=== PATIENT | female | born 1980 | race American Indian/Alaskan Native ===

== ENCOUNTER 2016-09-04 10:47 | Inpatient (IN) | payer OTHER ==
[2016-09-04] MEDS ORDERED: LACTATED RINGERS 500 ML IV ONE (11:22)
[2016-09-04 12:43] LABS: Hematocrit 31.8 % (30.3-42.9); Hemoglobin 10.2 gm/dl (10.1-14.3); Mean Corpuscular HGB Conc 32 % (30-34); Mean Corpuscular Volume 80 fl (79-97); Platelet Count 108 K/mm3 (140-440); Red Blood Count 3.99 M/mm3 (3.65-5.03); Red Cell Distribution Width 15.3 % (13.2-15.2); White Blood Count 6.2 K/mm3 (4.5-11.0)
[2016-09-04 13:02] LABS: Alanine Aminotransferase 9 units/L (7-56); Lactate Dehydrogenase 201 units/L (91-180); Uric Acid 3.6 mg/dL (3.5-7.6)
[2016-09-04 13:11] LABS: Mean Corpuscular Hemoglobin 25 pg (28-32)
[2016-09-04] MEDS ORDERED: ALUM-MAG HYDROX-SIMETH 200-200-20MG/5ML PO PRN (13:19)
[2016-09-04] MEDS ORDERED: BENADRYL PO PRN (13:19)
[2016-09-04] MEDS ORDERED: AMBIEN PO PRN (13:19)
[2016-09-04] MEDS ORDERED: MYLICON PO PRN (13:19)
[2016-09-04] MEDS ORDERED: COLACE PO PRN (13:19)
[2016-09-04] MEDS ORDERED: TYLENOL PO PRN (13:19)
[2016-09-04 13:22] LABS: Bilirubin,Urine NEG (Negative); Blood,Urine NEG (Negative); Ketones,Urine NEG (Negative); Leukocyte Esterase,Urine NEG (Negative); Mucus,Urine FEW /HPF; Nitrite,Urine NEG (Negative); Protein,Urine <15 mg/dL mg/dL (Negative); Urobilinogen,Urine < 2.0 mg/dL (<2.0)
[2016-09-04] MEDS: CELESTONE SOLUSPAN IM SCH (14:44)
[2016-09-04] MEDS: LACTATED RINGERS 1,000 ML IV SCH ×2 (15:13→20:07)
[2016-09-04] MEDS: NORMODYNE PO SCH ×2 (15:56→23:49)
--- NOTE | 2016-09-04 16:24 | Consultation ---
History of Present Illness Reason for consult: other (Pt is 36 y.o G [id number] at 32.6 weeks with MARISELA 10/14/16 Patient presented from Primary OB's office on 09/04/16 with elevated BP of 155/ 110 mm Hg . First OB appt BP of 128/93 mm Hg was noted . Patient reports history of PIH @ 2014. 24 hr urine and BMZ in progress . Denies [employer]ICLE [employer]OR complaints and reports AFM BP of 137/ 82 mm Hg . ) Medications and Allergies Allergies Allergy/AdvReac Type Severity Reaction Status Date / Time No Known Allergies Allergy Unverified 09/04/16 10:48 Active Meds: Active Medications Acetaminophen (Tylenol) 650 mg PO Q4H PRN PRN Reason: Pain MILD(1-3)/Fever >100.5/BOWDEN Al Hydrox/Mg Hydrox/Simethicone (Alum-Mag Hydrox-Simeth [id number]/5ml) 30 ml PO Q6H PRN PRN Reason: Indigestion Aspirin (Baby Aspirin) 81 mg PO QDAY [facility] Betamethasone Acet/Betameth SodPhos (Celestone Soluspan) 12 mg IM Q24H [facility] Stop: 09/05/16 15:01 Last Admin: 09/04/16 14:44 Dose: 12 mg Diphenhydramine HCl (Benadryl) 25 mg PO Q6H PRN PRN Reason: Itching Docusate Sodium (Colace) 100 mg PO Q12H PRN PRN Reason: Constipation Lactated Ringer's (Lactated Ringers) 1,000 mls @ 125 mls/hr IV DIRECT [facility] Last Admin: 09/04/16 15:13 Dose: 125 mls/hr Influenza Virus Vaccine Quadrival (Fluarix Quad [id number](36 Mos+)) 60 mcg IM .ONCE ONE Stop: 09/05/16 12:01 Labetalol HCl (Normodyne) 200 mg PO BID [facility] Last Admin: 09/04/16 15:56 Dose: 200 mg Multivitamins/Iron/Calcium ( Vitamin) 1 each PO QDAY [facility] Simethicone (Mylicon) 80 mg PO Q6H PRN PRN Reason: Gas pain Zolpidem Tartrate (Ambien) 10 mg PO ONCE PRN PRN Reason: Sleep Review of Systems Constitutional: no fever, no chills Eyes: deferred Ears, nose, mouth and throat: deferred Cardiovascular: no chest pain, no orthopnea, no palpitations, no edema, no syncope, no shortness of breath Respiratory: no cough Breasts: deferred Gastrointestinal: no abdominal pain, no nausea, no vomiting Genitourinary: contractions, no vaginal bleeding, no vaginal discharge, no leakage of fluid Rectal Exam: deferred Musculoskeletal: no low back pain Integumentary: no rash Neurological: no weakness, no seizures, no syncope, no headaches Psychiatric: no depression Endocrine: no high blood sugars Hematologic/Lymphatic: no easy bruising, no easy bleeding Allergic/Immunologic: no wheezing - Vital Signs Vital signs: Vital Signs Pulse Pulse Ox 79 99 09/04/16 11:08 09/04/16 11:08 Temp Pulse Resp BP Pulse Ox 92 H 137/82 100 09/04/16 16:14 09/04/16 16:14 09/04/16 14:52 - Physical Exam Breasts: Positive: deferred Cardiovascular: Regular rate, Normal S1, Normal S2 Lungs: Positive: Clear to auscultation, Normal air movement Abdomen: Negative: tenderness, guarding Uterus: Positive: other (Fundus NT ) Extremities: Positive: normal Deep Tendon Reflex Grade: Normal +2 - Obstetrical FHR: category 1 Uterine Contraction Monitor Mode: External (none traced) Uterine Contraction Pattern: Absent Results Result Diagrams: 09/04/16 12:07 09/04/16 12:07 Abnormal lab results 09/04/16 09/04/16 Range/Units 12:07 12:07 MCH 25 L (28-32) pg RDW 15.3 H (13.2-15.2) % Plt Count 108 L (140-440) K/mm3 Creatinine 0.5 L (0.7-1.2) mg/dL Lactate Dehydrogenase 201 H (91-180) units/L All other labs normal. Assessment and Plan A) 1. 32.6 weeks gestation 2. Presented with elevated BP of 155/110 from POB 3. NO [employer] complaints 4. Stable BP of 137/82 mm Hg under Labetalol 200 mg PO BID 5. History of PIH in 2013 6. 24 hr urine and BMZ in progress P) 1. Continue inpatient evaluation 2. Continue 24 hr urine 3. 2 nd BMZ due 09/05/16 4. Labetalol 200 mg PO BID 5. LDA 6. Daily weight 7. MgSO4 as indicated 8. Strict I/O's 9. NICU consult 10. Continuous monitoring and BPP twice a week 11. Deliver with abnormal findings suggestive of PreEclampsia , or continue her hospital admission with borderline findings 12. With concerns call on all LOLA RODRIGUEZ-Dr. Chou .
[2016-09-04] MEDS ORDERED: MAGNESIUM SULFATE 4GM/100ML 100 ML IV ONE (16:52)
[2016-09-04] MEDS ORDERED: MAGNESIUM SULFATE 40GM/1000ML 1,000 ML IV SCH ×2 (17:00)
--- NOTE | 2016-09-04 17:00 | History and Physical Report ---
History of Present Illness Date of examination: 09/04/16 Date of admission: 09/04/16 13:45 Chief complaint: elevated blood pressure and abdominal pain. right upper abdomen Past History Past Medical History: hypertension (PIH 2014 with previous ) Social history: no significant social history - Obstetrical History Expected Date of Delivery: 10/24/16 Actual Gestation: 32 Week(s) 6 Day(s) : 5 Induced : 1 Number of Living Children: 3 Medications and Allergies Allergies Allergy/AdvReac Type Severity Reaction Status Date / Time No Known Allergies Allergy Unverified 09/04/16 10:48 Active Meds: Active Medications Acetaminophen (Tylenol) 650 mg PO Q4H PRN PRN Reason: Pain MILD(1-3)/Fever >100.5/BOWDEN Al Hydrox/Mg Hydrox/Simethicone (Alum-Mag Hydrox-Simeth [phone]/5ml) 30 ml PO Q6H PRN PRN Reason: Indigestion Aspirin (Baby Aspirin) 81 mg PO QDAY [facility] Betamethasone Acet/Betameth SodPhos (Celestone Soluspan) 12 mg IM Q24H [facility] Stop: 09/05/16 15:01 Last Admin: 09/04/16 14:44 Dose: 12 mg Diphenhydramine HCl (Benadryl) 25 mg PO Q6H PRN PRN Reason: Itching Docusate Sodium (Colace) 100 mg PO Q12H PRN PRN Reason: Constipation Lactated Ringer's (Lactated Ringers) 1,000 mls @ 125 mls/hr IV DIRECT [facility] Last Admin: 09/04/16 15:13 Dose: 125 mls/hr Magnesium Sulfate (Magnesium Sulfate 40gm/1000ml) 1,000 mls @ 25 mls/hr IV DIRECT [facility] PRN Reason: 1 GM/HR Magnesium Sulfate (Magnesium Sulfate 40gm/1000ml) 1,000 mls @ 50 mls/hr IV DIRECT [facility] PRN Reason: 2 GM/HR Magnesium Sulfate (Magnesium Sulfate 4gm/100ml) 100 mls @ 300 mls/hr IV ONCE ONE Stop: 09/04/16 17:11 Influenza Virus Vaccine Quadrival (Fluarix Quad [id number](36 Mos+)) 60 mcg IM .ONCE ONE Stop: 09/05/16 12:01 Labetalol HCl (Normodyne) 200 mg PO BID [facility] Last Admin: 09/04/16 15:56 Dose: 200 mg Multivitamins/Iron/Calcium ( Vitamin) 1 each PO QDAY [facility] Simethicone (Mylicon) 80 mg PO Q6H PRN PRN Reason: Gas pain Zolpidem Tartrate (Ambien) 10 mg PO ONCE PRN PRN Reason: Sleep Review of Systems All systems: negative - Vital Signs Vital signs: Vital Signs Pulse Pulse Ox 79 99 09/04/16 11:08 09/04/16 11:08 Temp Pulse Resp BP Pulse Ox 93 H 146/81 100 09/04/16 16:23 09/04/16 16:23 09/04/16 14:52 - Physical Exam Breasts: Cardiovascular: Regular rate, Normal S1, Normal S2 Abdomen: Positive: normal appearance, soft, normal bowel sounds. Negative: distention, tenderness Vulva: both: normal Vagina: Positive: normal moisture. Negative: discharge Cervix: Negative: lesion, discharge Uterus: Positive: normal size, normal contour Adnexa: both: normal Anus/Rectum: Positive: normal perianal skin, heme negative. Negative: rectal mass, hemorrhoids Extremities: Deep Tendon Reflex Grade: Normal +2 - Obstetrical FHR: category 1 Uterine Contraction Monitor Mode: External Uterine Contraction Pattern: Absent Uterine Tone Measurement Phase: Resting Results Result Diagrams: 09/04/16 12:07 09/04/16 12:07 Abnormal lab results 09/04/16 09/04/16 Range/Units 12:07 12:07 MCH 25 L (28-32) pg RDW 15.3 H (13.2-15.2) % Plt Count 108 L (140-440) K/mm3 Creatinine 0.5 L (0.7-1.2) mg/dL Lactate Dehydrogenase 201 H (91-180) units/L All other labs normal. Assessment and Plan IUP at 32 6/7 weeks, Elevated Blood presures- Chronic HTN vs PIH HX of PIH 2013 Late PNC starting second trimester plan- admit- antepartum STeroids labetelol 200 mg po BID [facility] consult Start Magnesium sulfate 24 hour urine
[2016-09-04] MEDS: BABY ASPIRIN PO SCH (20:07)
--- NOTE | 2016-09-05 06:57 | Admit Criteria Form ---
Admission Criteria Documentation: HYPERTENSIVE DISORDERS OF Clinical Indications for Admission to Inpatient Care (Place 'X' for any and all applicable criteria): Admission is indicated for ANY ONE of the following (1)(2)(3)(4)(5): [ ]I. Eclampsia[A][B] [ ]II. Preeclampsia with severe features (ie, severe preeclampsia) indicated by ANY ONE of the following[B][C]: [ ]a) SBP greater than or equal to 160 mm Hg or DBP greater than or equal to 110 mm Hg on 2 occasions at least 4 hours apart while the patient is at bed rest (unless antihypertensive therapy is initiated before this time) [ ]b) Platelet count less than 100,000/mm3 (100 x109/L) [ ]c) Impaired liver function as indicated by ANY ONE of the following: [ ]i. Elevation of liver enzymes (eg, SGOT, SGPT) to twice normal concentration [ ]ii. Severe persistent right upper quadrant or epigastric pain unresponsive to medication and not accounted for by alternative diagnosis [ ]d) Progressive renal insufficiency indicated by ANY ONE of the following: [ ]i. Serum creatinine concentration greater than 1.1 mg/dL (97 micromoles/L) [ ]ii. Doubling (from baseline) of serum creatinine concentration in the absence of other renal disease [ ]e) Pulmonary edema [ ]f) Cerebral or visual symptoms (eg, headache, Altered mental status , changes in vision) [ ]III. Delivery planned due to nonsevere preeclampsia as indicated by ALL of the following: [ ]a) Nonsevere preeclampsia present as indicated by ALL of the following: [ ]i. Woman at 20 or more weeks' gestation [ ]ii. New-onset SBP greater than or equal to 140 mm Hg but less than 160 mm Hg or DBP greater than or equal to 90 mm Hg but less than 110 mm Hg on 2 occasions at least 4 hours apart [ ]iii. Proteinuria present as indicated by ANY ONE of the following: [ ]A. Urinary protein excretion greater than or equal to 300 mg per 24-hour collection (or this amount extrapolated from a shorter timed collection) [ ]B. Protein/creatinine ratio greater than or equal to 0.3 (measured in mg/dL) [ ]b) Delivery indicated due to ANY ONE of the following: [ ]i. Gestational age of 37 0/7 weeks or more [ ]ii. Gestational age of 34 0/7 weeks to 36 6/7 weeks and ANY ONE of the following: [ ]A. Progressive labor or rupture of membranes [ ]B. Abnormal biophysical profile [ ]C. Suspected abruptio placentae [ ]D. Ultrasound estimate of weight less than 5th percentile [ ]E. Other indication for delivery [ ]IV. Delivery planned due to gestational hypertension[D] because of ANY ONE of the following: [ ]a) Delivery indicated because gestational age of 37 0/7 weeks or more has been reached [ ]b) Gestational age of 34 0/7 weeks to 36 6/7 weeks for which delivery is indicated because of ANY ONE of the following: [ ]i. Progressive labor or rupture of membranes [ ]ii. Abnormal biophysical profile [ ]iii. Suspected abruptio placentae [ ]iv. Ultrasound estimate of weight less than 5th percentile [ ]v. Other indication for delivery [ ]V. Hypertension of any category[E] during with acute end organ damage as indicated by ANY ONE of the following: [ ]a) Hypertensive encephalopathy (eg, Altered mental status that is severe or persistent )(11) [ ]b) Cerebral infarction [ ]c) Intracranial hemorrhage [ ]d) Myocardial ischemia or infarction [ ]e) Pulmonary edema [ ]f) Aortic dissection [ ]g) Seizure [ ]h) Papilledema [ ]i) Microangiopathic hemolytic anemia [ ]j) Visual loss [ ]k) Acute renal failure [ ]) Hypertension during with evidence of compromise as indicated by ANY ONE of the following: [ ]a) Abnormal heart tones [ ]b) Abnormal stress test [ ]c) Abnormal biophysical profile [X ]VII) patient requires inpatient control of blood pressure indicated by (see Hypertensive Disorders of : Observation Care [facility] guideline as appropriate) ALL of the following: [X ]a) SBP is greater than or equal to 160 mm Hg or DBP is greater than or equal to 105 mm Hg [X ]b) Blood pressure cannot be reduced below these levels with outpatient or observation care treatment (eg, oral medications not effective) Extended stay beyond goal length of stay may be needed for : [ ]a) Eclampsia [ ]b) Ongoing compromise [ ]c) Complications of hypertensive disorders of [ ]d) Active comorbidities (eg, heart failure, poorly controlled diabetes, renal insufficiency) [ ]e) Persistent hypertension [ ]f) Delivery planned The original [facility] content created by [facility] has been revised. The portions of the content which have been revised are identified through the use of italic text or in bold, and [facility] has neither reviewed nor approved the modified material. All other unmodified content is copyright [facility]. Please see references footnoted in the original [facility] edition 2016. Admission Criteria Met: Yes
--- NOTE | 2016-09-05 07:43 | Ultrasound Report ---
BIOPHYSICAL PROFILE: History: -induced hypertension. Technique: Transabdominal ultrasound with Doppler interrogation. 2 - breathing movements 2 - movements 2 - posture and tone 2 - Qualitative amniotic fluid volume 8 - TOTAL SCORE OF POSSIBLE 8 Heart Rate (bpm) 131
--- NOTE | 2016-09-05 08:08 | Progress Note ---
Assessment and Plan HD 2- elevated BP- IUP at 32 6/7 weeks Subjective - Subjective Date of service: 09/05/16 Principal diagnosis: elevated bp, Interval history: pt doing well. awaiting conclusion of 24 hour urine. Bp doing well on labetolol Patient reports: new complaints, loss of fluid Objective - Vital Signs Vital Signs: Vital Signs - 12hr 09/04/16 09/04/16 09/04/16 20:06 20:11 20:16 Temperature Pulse Rate 94 H 97 H 100 H Respiratory Rate Blood Pressure O2 Sat by Pulse 97 98 98 Oximetry 09/04/16 09/04/16 09/04/16 20:21 20:26 20:31 Temperature Pulse Rate 95 H 90 93 H Respiratory Rate Blood Pressure O2 Sat by Pulse 98 98 98 Oximetry 09/04/16 09/04/16 09/04/16 20:36 20:41 20:46 Temperature Pulse Rate 91 H 90 92 H Respiratory Rate Blood Pressure O2 Sat by Pulse 98 98 98 Oximetry 09/04/16 09/04/16 09/04/16 20:51 20:56 21:01 Temperature Pulse Rate 92 H 92 H 95 H Respiratory Rate Blood Pressure O2 Sat by Pulse 98 98 98 Oximetry 09/04/16 09/04/16 09/04/16 21:04 21:06 21:11 Temperature Pulse Rate 87 89 99 H Respiratory Rate Blood Pressure 120/75 O2 Sat by Pulse 98 96 Oximetry 09/04/16 09/04/16 09/04/16 21:16 21:21 21:26 Temperature Pulse Rate 87 91 H 100 H Respiratory Rate Blood Pressure O2 Sat by Pulse 98 98 98 Oximetry 09/04/16 09/04/16 09/04/16 21:31 21:36 21:41 Temperature Pulse Rate 104 H 97 H 95 H Respiratory Rate Blood Pressure O2 Sat by Pulse 98 98 98 Oximetry 09/04/16 09/04/16 09/04/16 21:46 21:51 21:56 Temperature Pulse Rate 91 H 88 87 Respiratory Rate Blood Pressure O2 Sat by Pulse 98 99 99 Oximetry 09/04/16 09/04/16 09/04/16 22:01 22:05 22:06 Temperature Pulse Rate 91 H 99 H 101 H Respiratory Rate Blood Pressure 131/74 O2 Sat by Pulse 99 98 Oximetry 09/04/16 09/04/16 09/04/16 22:11 22:16 22:21 Temperature Pulse Rate 95 H 89 89 Respiratory Rate Blood Pressure O2 Sat by Pulse 99 98 98 Oximetry 09/04/16 09/04/16 09/04/16 22:26 22:31 22:36 Temperature Pulse Rate 89 88 99 H Respiratory Rate Blood Pressure O2 Sat by Pulse 98 98 97 Oximetry 09/04/16 09/04/16 09/04/16 22:41 22:46 22:51 Temperature Pulse Rate 93 H 90 93 H Respiratory Rate Blood Pressure O2 Sat by Pulse 98 99 98 Oximetry 09/04/16 09/04/16 09/04/16 22:56 23:01 23:04 Temperature Pulse Rate 98 H 92 H 90 Respiratory Rate Blood Pressure 120/75 O2 Sat by Pulse 98 98 Oximetry 09/04/16 09/04/16 09/04/16 23:06 23:11 23:16 Temperature Pulse Rate 92 H 93 H 91 H Respiratory Rate Blood Pressure O2 Sat by Pulse 98 98 98 Oximetry 09/04/16 09/04/16 09/04/16 23:21 23:26 23:31 Temperature Pulse Rate 91 H 84 87 Respiratory Rate Blood Pressure O2 Sat by Pulse 98 97 97 Oximetry 09/04/16 09/04/16 09/04/16 23:36 23:41 23:46 Temperature Pulse Rate 85 88 86 Respiratory Rate Blood Pressure O2 Sat by Pulse 98 97 98 Oximetry 09/04/16 09/04/16 09/04/16 23:49 23:51 23:53 Temperature 98.2 F Pulse Rate 87 89 Respiratory 20 Rate Blood Pressure 120/75 O2 Sat by Pulse 99 Oximetry 09/04/16 09/05/16 09/05/16 23:56 00:01 00:04 Temperature Pulse Rate 80 86 85 Respiratory Rate Blood Pressure 124/75 O2 Sat by Pulse 98 97 Oximetry 09/05/16 09/05/16 09/05/16 00:06 00:11 00:16 Temperature Pulse Rate 90 87 87 Respiratory Rate Blood Pressure O2 Sat by Pulse 98 97 97 Oximetry 09/05/16 09/05/16 09/05/16 00:21 00:26 00:31 Temperature Pulse Rate 88 87 89 Respiratory Rate Blood Pressure O2 Sat by Pulse 97 97 97 Oximetry 09/05/16 09/05/16 09/05/16 00:36 00:41 00:46 Temperature Pulse Rate 91 H 85 95 H Respiratory Rate Blood Pressure O2 Sat by Pulse 97 98 98 Oximetry 09/05/16 09/05/16 09/05/16 00:51 00:56 01:01 Temperature Pulse Rate 85 86 87 Respiratory Rate Blood Pressure O2 Sat by Pulse 97 97 97 Oximetry 09/05/16 09/05/16 09/05/16 01:04 01:06 01:11 Temperature Pulse Rate 96 H 85 85 Respiratory Rate Blood Pressure 135/92 O2 Sat by Pulse 97 98 Oximetry 09/05/16 09/05/16 09/05/16 01:16 01:17 01:21 Temperature Pulse Rate 95 H 70 90 Respiratory Rate Blood Pressure 134/73 O2 Sat by Pulse 99 81 L 97 Oximetry 09/05/16 09/05/16 09/05/16 01:26 01:31 01:36 Temperature Pulse Rate 87 85 88 Respiratory Rate Blood Pressure O2 Sat by Pulse 97 97 96 Oximetry 09/05/16 09/05/16 09/05/16 01:41 01:46 01:51 Temperature Pulse Rate 90 87 86 Respiratory Rate Blood Pressure O2 Sat by Pulse 97 97 95 Oximetry 09/05/16 09/05/16 09/05/16 01:56 02:00 02:01 Temperature Pulse Rate 93 H 92 H 93 H Respiratory Rate Blood Pressure O2 Sat by Pulse 95 94 96 Oximetry 09/05/16 09/05/16 09/05/16 02:04 02:06 02:11 Temperature Pulse Rate 92 H 98 H 86 Respiratory Rate Blood Pressure 119/76 O2 Sat by Pulse 97 97 Oximetry 09/05/16 09/05/16 09/05/16 02:16 02:21 02:26 Temperature Pulse Rate 86 86 93 H Respiratory Rate Blood Pressure O2 Sat by Pulse 97 97 98 Oximetry 09/05/16 09/05/16 09/05/16 02:31 02:36 02:41 Temperature Pulse Rate 82 85 91 H Respiratory Rate Blood Pressure O2 Sat by Pulse 98 98 97 Oximetry 09/05/16 09/05/16 09/05/16 02:46 02:51 02:55 Temperature Pulse Rate 91 H 90 99 H Respiratory Rate Blood Pressure O2 Sat by Pulse 98 97 90 Oximetry 09/05/16 09/05/16 09/05/16 02:56 03:01 03:04 Temperature Pulse Rate 89 89 85 Respiratory Rate Blood Pressure 132/77 O2 Sat by Pulse 99 100 Oximetry 09/05/16 09/05/16 09/05/16 03:06 03:11 03:16 Temperature Pulse Rate 93 H 90 88 Respiratory Rate Blood Pressure O2 Sat by Pulse 98 100 100 Oximetry 09/05/16 09/05/16 09/05/16 03:17 03:21 03:26 Temperature Pulse Rate 101 H 83 86 Respiratory Rate Blood Pressure O2 Sat by Pulse 94 100 100 Oximetry 09/05/16 09/05/16 09/05/16 03:31 03:36 03:42 Temperature Pulse Rate 89 85 92 H Respiratory Rate Blood Pressure O2 Sat by Pulse 100 100 99 Oximetry 09/05/16 09/05/16 09/05/16 03:47 03:52 03:57 Temperature Pulse Rate 84 84 85 Respiratory Rate Blood Pressure O2 Sat by Pulse 98 97 98 Oximetry 09/05/16 09/05/16 09/05/16 04:02 04:04 04:07 Temperature Pulse Rate 86 83 83 Respiratory Rate Blood Pressure 136/80 O2 Sat by Pulse 98 98 Oximetry 09/05/16 09/05/16 09/05/16 04:12 04:17 04:22 Temperature Pulse Rate 86 87 90 Respiratory Rate Blood Pressure O2 Sat by Pulse 98 97 96 Oximetry 09/05/16 09/05/16 09/05/16 04:27 04:32 04:38 Temperature 98.0 F Pulse Rate 87 94 H 91 H Respiratory 20 Rate Blood Pressure O2 Sat by Pulse 97 97 97 Oximetry 09/05/16 09/05/16 09/05/16 04:40 04:43 04:48 Temperature Pulse Rate 92 H 88 87 Respiratory Rate Blood Pressure O2 Sat by Pulse 94 96 96 Oximetry 09/05/16 09/05/16 09/05/16 04:53 04:58 05:03 Temperature Pulse Rate 90 90 89 Respiratory Rate Blood Pressure O2 Sat by Pulse 96 97 96 Oximetry 09/05/16 09/05/16 09/05/16 05:04 05:08 05:13 Temperature Pulse Rate 85 91 H 94 H Respiratory Rate Blood Pressure 121/72 O2 Sat by Pulse 96 99 Oximetry 09/05/16 09/05/16 09/05/16 05:18 05:23 05:28 Temperature Pulse Rate 90 89 89 Respiratory Rate Blood Pressure O2 Sat by Pulse 99 98 98 Oximetry 09/05/16 09/05/16 09/05/16 05:33 05:38 05:43 Temperature Pulse Rate 91 H 90 91 H Respiratory Rate Blood Pressure O2 Sat by Pulse 98 98 98 Oximetry 09/05/16 09/05/16 09/05/16 05:48 05:53 05:58 Temperature Pulse Rate 96 H 95 H 89 Respiratory Rate Blood Pressure O2 Sat by Pulse 99 99 99 Oximetry 09/05/16 09/05/16 09/05/16 06:03 06:04 06:08 Temperature Pulse Rate 92 H 89 90 Respiratory Rate Blood Pressure 120/72 O2 Sat by Pulse 100 98 Oximetry 09/05/16 09/05/16 09/05/16 06:13 06:18 06:23 Temperature Pulse Rate 94 H 90 94 H Respiratory Rate Blood Pressure O2 Sat by Pulse 98 98 97 Oximetry 09/05/16 09/05/16 09/05/16 06:28 06:33 06:38 Temperature Pulse Rate 91 H 94 H 90 Respiratory Rate Blood Pressure O2 Sat by Pulse 99 99 100 Oximetry 09/05/16 09/05/16 09/05/16 06:43 06:48 06:53 Temperature Pulse Rate 91 H 91 H 86 Respiratory Rate Blood Pressure O2 Sat by Pulse 99 99 99 Oximetry 09/05/16 09/05/16 09/05/16 06:58 07:03 07:04 Temperature Pulse Rate 91 H 92 H 90 Respiratory Rate Blood Pressure 125/79 O2 Sat by Pulse 97 99 Oximetry 09/05/16 09/05/16 09/05/16 07:08 07:13 07:18 Temperature Pulse Rate 89 87 87 Respiratory Rate Blood Pressure O2 Sat by Pulse 99 97 97 Oximetry 09/05/16 09/05/16 09/05/16 07:23 07:28 07:33 Temperature Pulse Rate 88 88 95 H Respiratory Rate Blood Pressure O2 Sat by Pulse 97 97 97 Oximetry 09/05/16 09/05/16 09/05/16 07:38 07:43 07:48 Temperature Pulse Rate 93 H 90 88 Respiratory Rate Blood Pressure O2 Sat by Pulse 100 100 99 Oximetry 09/05/16 09/05/16 07:53 07:58 Temperature Pulse Rate 86 87 Respiratory Rate Blood Pressure O2 Sat by Pulse 100 100 Oximetry - Exam Breasts: deferred Cardiovascular: Regular rate, Normal S1, Normal S2 Lungs: Clear to auscultation Abdomen: Present: normal appearance, soft. Absent: distention, tenderness Vulva: both: normal Uterus: Present: normal FHR: auscultation normal, category 1 Uterine Contraction Monitor Mode: External Uterine Contraction Pattern: Absent Uterine Tone Measurement Phase: Resting Extremities: normal - Labs Labs: Abnormal Labs 09/04/16 09/04/16 09/05/16 12:07 12:07 01:07 MCH 25 L RDW 15.3 H Plt Count 108 L Creatinine 0.5 L Magnesium 4.4 H Lactate Dehydrogenase 201 H 09/05/16 06:00 MCH RDW Plt Count Creatinine Magnesium 4.7 H Lactate Dehydrogenase Laboratory Results - last 24 hr 09/04/16 09/04/16 09/04/16 12:07 12:07 12:30 WBC 6.2 RBC 3.99 Hgb 10.2 Hct 31.8 MCV 80 MCH 25 L MCHC 32 RDW 15.3 H Plt Count 108 L Creatinine 0.5 L Estimated GFR > 60 Uric Acid 3.6 Magnesium AST 18 ALT 9 Lactate Dehydrogenase 201 H Urine Color Yellow Urine Turbidity Cloudy Urine pH 7.0 Ur Specific [place] 1.013 Urine Protein <15 mg/dl Urine Glucose (UA) Neg Urine Ketones Neg Urine Blood Neg Urine Nitrite Neg Urine Bilirubin Neg Urine Urobilinogen < 2.0 Ur Leukocyte Esterase Neg Urine WBC (Auto) 6.0 Urine RBC (Auto) 2.0 U Epithel Cells (Auto) 5.0 Urine Mucus Few Blood Type Antibody Screen 09/04/16 09/05/16 09/05/16 14:27 01:07 06:00 WBC RBC Hgb Hct MCV MCH MCHC RDW Plt Count Creatinine Estimated GFR Uric Acid Magnesium 4.4 H 4.7 H AST ALT Lactate Dehydrogenase Urine Color Urine Turbidity Urine pH Ur Specific Garden Urine Protein Urine Glucose (UA) Urine Ketones Urine Blood Urine Nitrite Urine Bilirubin Urine Urobilinogen Ur Leukocyte Esterase Urine WBC (Auto) Urine RBC (Auto) U Epithel Cells (Auto) Urine Mucus Blood Type O POSITIVE Antibody Screen Negative
--- NOTE | 2016-09-05 08:42 | Ultrasound Report ---
OB ULTRASOUND: HISTORY: -induced hypertension. TECHNIQUE: Transabdominal ultrasound with Doppler interrogation. Gestation: lopez Position: cephalic Amniotic Fluid: WNL (7-24 cm) NENITA = 15.8 cm Placenta: anterior Placental Grade: I Heart Rate: 131 BPM Cervical length: 3.2 cm (Normal > 3 cm) NEUROANATOMY VISUALIZED: Choroid Plexus Lateral Ventricle ANATOMY VISUALIZED: Stomach Kidneys Bladder Diaphragm 4 Chamber Heart Heart 3 Vessel Cord Abd. Cord Insert SPINE VISUALIZED: Longitudinal Transverse The following are not demonstrated due to maternal body habitus or lie: CM/cereb. BPD: 8.5 cm = 34 w 3 d HC: 30.8 cm = 34 w 3 d AC: 29.4 cm = 33 w 2 d FL: 6.5 cm = 33 w 2 d HC/AC Ratio: 1.05 Cephalic Index: 83.4 Estimated Weight: 2219 grams Clinical age = 32 w 6 d EDC: 3-17 US Gest. Age = 33 w 6 d EDC: 17 COMMENT: There is limited visualization of the cisterna magnum and cerebellum.
[2016-09-05] MEDS: LACTATED RINGERS 1,000 ML IV SCH ×2 (09:06→21:06)
[2016-09-05] MEDS: NORMODYNE PO SCH ×2 (10:20→22:20)
[2016-09-05] MEDS: BABY ASPIRIN PO SCH (10:21)
[2016-09-05] MEDS: PRENATAL VITAMIN PO SCH (10:21)
[2016-09-05] MEDS ORDERED: FLUARIX QUAD 2016-2017(36 MOS+) IM ONE (12:00)
--- NOTE | 2016-09-05 13:52 | Consultation ---
History of Present Illness Consult date: 09/05/16 Requesting physician: HECTOR MEMBRENO Reason for consult: vulvar trauma History of present illness: History of Present Illness (Pt is 36 y.o G [id number] at 33 0/7 weeks with MARISELA 10/14/16 Patient presented from Primary OB's office on 09/04/16 \\with elevated BP of 155/110 mm Hg . Reported not feeling well and lethargic and weak. was feeling 10/10 on admission now "4/10" Denies BOWDEN's Scotoma or RUQ Pain BP's then noted to be elevated BP of 155/110 mm Hg . First OB appt BP of 128/93 mm Hg was noted at 20 weeks. Patient reports history of PIH @ 2013. 24 hr urine and BMZ in progress . Denies PELOTA MAKER complaints and reports AFM BP of 133/83 and 150/88mm Hg . On labetalol started yesterday 200 BID US BPP 8/8 EFW - 2219 grams 63% NENITA at 15.9 cm Vtx Past History Past Medical History: hypertension (PI 2013 with previous ) - Obstetrical History : 5 Medications and Allergies Allergies Allergy/AdvReac Type Severity Reaction Status Date / Time No Known Allergies Allergy Unverified 09/04/16 10:48 Home Medications Medication Instructions Recorded Confirmed Last Taken Type Aspirin [Adult Low Dose Aspirin EC] 81 mg PO QDAY #30 tablet. 09/05/16 Unknown Rx Labetalol [Normodyne TAB] 200 mg PO BID #60 tablet 09/05/16 Unknown Rx Vit-Fe Fumar-FA [ 1 tab PO QDAY 09/05/16 09/05/16 Unknown History Vitamin] Active Meds: Active Medications Acetaminophen (Tylenol) 650 mg PO Q4H PRN PRN Reason: Pain MILD(1-3)/Fever >100.5/BOWDEN Al Hydrox/Mg Hydrox/Simethicone (Alum-Mag Hydrox-Simeth [id number]/5ml) 30 ml PO Q6H PRN PRN Reason: Indigestion Aspirin (Baby Aspirin) 81 mg PO QDAY [facility] Last Admin: 09/05/16 10:21 Dose: 81 mg Betamethasone Acet/Betameth SodPhos (Celestone Soluspan) 12 mg IM Q24H [facility] Stop: 09/05/16 15:01 Last Admin: 09/04/16 14:44 Dose: 12 mg Diphenhydramine HCl (Benadryl) 25 mg PO Q6H PRN PRN Reason: Itching Docusate Sodium (Colace) 100 mg PO Q12H PRN PRN Reason: Constipation Lactated Ringer's (Lactated Ringers) 1,000 mls @ 125 mls/hr IV DIRECT [facility] Last Admin: 09/05/16 09:06 Dose: 100 mls/hr Labetalol HCl (Normodyne) 200 mg PO BID [facility] Last Admin: 09/05/16 10:20 Dose: 200 mg Multivitamins/Iron/Calcium ( Vitamin) 1 each PO QDAY [facility] Last Admin: 09/05/16 10:21 Dose: 1 each Simethicone (Mylicon) 80 mg PO Q6H PRN PRN Reason: Gas pain Zolpidem Tartrate (Ambien) 10 mg PO ONCE PRN PRN Reason: Sleep - Vital Signs Vital signs: Vital Signs Pulse Pulse Ox 79 99 09/04/16 11:08 09/04/16 11:08 Temp Pulse Resp BP Pulse Ox 98.1 F 89 20 150/88 99 09/05/16 12:14 09/05/16 12:14 09/05/16 12:14 09/05/16 12:14 09/05/16 12:14 Results Result Diagrams: 09/04/16 12:07 09/04/16 12:07 Abnormal lab results 09/05/16 09/05/16 09/05/16 Range/Units 01:07 06:00 11:03 Magnesium 4.4 H 4.7 H 8.6 H (1.7-2.3) mg/dL 09/05/16 Range/Units 12:33 Magnesium 4.0 H (1.7-2.3) mg/dL All other labs normal. Assessment and Plan Impression: 1. 33 0/7 week [place] IUP (EFM Categ I - Pos Accels) 2. Gest HTN Verse CHTN (Denies CHTN but borderline elevated at 20 weeks) 3. H/O PIH with prior preg 4. Thrombocytopenia - Plts at 108 (Plts 126 on 07/08/16) 5. Borderline Anemia Plan: 1. May DC Mg if asymptomatic and BP's controlled 2. Continue Labetalol 200 BID 3. Deliver for S/S of severe preeclampsia or compromise 4. BPP's twice per week while in hospital 5. 24 Hour Urine Prot pending 6. Would repeat CBC and CMP with next blood draw 7. Disposition pending labs 8. Iron BID
[2016-09-05] MEDS: CELESTONE SOLUSPAN IM SCH (14:57)
[2016-09-05 16:22] LABS: Hematocrit 32.4 % (30.3-42.9); Hemoglobin 10.1 gm/dl (10.1-14.3); Mean Corpuscular HGB Conc 31 % (30-34); Mean Corpuscular Hemoglobin 26 pg (28-32); Mean Corpuscular Volume 82 fl (79-97); Platelet Count 113 K/mm3 (140-440); Red Blood Count 3.94 M/mm3 (3.65-5.03); Red Cell Distribution Width 15.2 % (13.2-15.2)
[2016-09-05 16:31] LABS: Alanine Aminotransferase 10 units/L (7-56)
[2016-09-05 16:39] LABS: Lactate Dehydrogenase 206 units/L (91-180); Uric Acid 3.3 mg/dL (3.5-7.6)
[2016-09-05] MEDS ORDERED: PERCOCET 5/325 PO ONE (21:10)
[2016-09-05] MEDS: FEOSOL PO SCH (22:19)
[2016-09-06] MEDS: LACTATED RINGERS 1,000 ML IV SCH (05:20)
--- NOTE | 2016-09-06 09:26 | Progress Note ---
Assessment and Plan iup at 33 1/7 weeks. Mild PIH will d/c home on bed rest , labetolol, baby aspririn, follow up twice weekly with labs and weekly BPP Subjective - Subjective Date of service: 09/06/16 Principal diagnosis: elevated bp, Interval history: pt doing well. 24 hour urine total protein 345. Suggesstive of mild PIH. Will d/c home on labetelol, baby aspirin and strict bed rest per ApA recommendations Patient reports: movement normal Objective - Vital Signs Vital Signs: Vital Signs - 12hr 09/05/16 09/05/16 09/06/16 21:55 22:20 00:32 Temperature Pulse Rate 93 H 93 H 95 H Pulse Rate [ From Monitor] Respiratory Rate Blood Pressure 138/81 138/81 122/65 Blood Pressure [Left Arm] O2 Sat by Pulse Oximetry 09/06/16 09/06/16 09/06/16 00:34 04:30 04:39 Temperature 97.7 F 97.9 F Pulse Rate 100 H Pulse Rate [ From Monitor] Respiratory 20 18 Rate Blood Pressure 129/67 Blood Pressure [Left Arm] O2 Sat by Pulse Oximetry 09/06/16 09/06/16 09/06/16 05:38 05:43 05:48 Temperature Pulse Rate 99 H 100 H 99 H Pulse Rate [ From Monitor] Respiratory Rate Blood Pressure Blood Pressure [Left Arm] O2 Sat by Pulse 98 99 98 Oximetry 09/06/16 09/06/16 09/06/16 05:53 05:58 08:11 Temperature 98.4 F Pulse Rate 104 H 100 H 101 H Pulse Rate [ 97 H From Monitor] Respiratory 18 Rate Blood Pressure Blood Pressure 137/69 [Left Arm] O2 Sat by Pulse 98 99 98 Oximetry 09/06/16 08:12 Temperature Pulse Rate 98 H Pulse Rate [ From Monitor] Respiratory Rate Blood Pressure 137/69 Blood Pressure [Left Arm] O2 Sat by Pulse Oximetry - Exam Breasts: deferred Cardiovascular: Regular rate, Normal S1, Normal S2 Lungs: Clear to auscultation Abdomen: Present: normal appearance, soft. Absent: distention, tenderness Vulva: both: normal Uterus: Present: normal FHR: auscultation normal Uterine Contraction Monitor Mode: External Uterine Contraction Pattern: Absent - Labs Labs: Abnormal Labs 09/04/16 09/04/16 09/05/16 12:07 12:07 01:07 MCH 25 L RDW 15.3 H Plt Count 108 L Creatinine 0.5 L Uric Acid Magnesium 4.4 H Lactate Dehydrogenase 201 H Urine Creatinine Ur Total Protein 24 Hr Urine Total Protein 09/05/16 09/05/16 09/05/16 06:00 11:03 12:33 MCH RDW Plt Count Creatinine Uric Acid Magnesium 4.7 H 8.6 H 4.0 H Lactate Dehydrogenase Urine Creatinine Ur Total Protein 24 Hr Urine Total Protein 09/05/16 09/05/16 09/05/16 14:00 16:01 16:01 MCH 26 L RDW Plt Count 113 L Creatinine 0.5 L Uric Acid 3.3 L Magnesium Lactate Dehydrogenase 206 H Urine Creatinine 72.3 H Ur Total Protein 24 Hr 345.00 H Urine Total Protein 15 H Laboratory Results - last 24 hr 09/05/16 09/05/16 09/05/16 11:03 12:33 14:00 WBC RBC Hgb Hct MCV MCH MCHC RDW Plt Count Creatinine Estimated GFR Uric Acid Magnesium 8.6 H 4.0 H AST ALT Lactate Dehydrogenase Urine Total Volume 2300 Urine Creatinine 72.3 H Ur Creatinine 24 Hour 1.7 Ur Total Protein 24 Hr 345.00 H Urine Total Protein 15 H 09/05/16 09/05/16 16:01 16:01 WBC 9.0 RBC 3.94 Hgb 10.1 Hct 32.4 MCV 82 MCH 26 L MCHC 31 RDW 15.2 Plt Count 113 L Creatinine 0.5 L Estimated GFR > 60 Uric Acid 3.3 L Magnesium AST 17 ALT 10 Lactate Dehydrogenase 206 H Urine Total Volume Urine Creatinine Ur Creatinine 24 Hour Ur Total Protein 24 Hr Urine Total Protein
[2016-09-06] MEDS: FEOSOL PO SCH (10:12)
[2016-09-06] MEDS: NORMODYNE PO SCH (10:12)
[2016-09-06] MEDS: PRENATAL VITAMIN PO SCH (10:12)
[2016-09-06] MEDS: BABY ASPIRIN PO SCH (10:14)
[2016-09-06 11:38] VITALS: BP 123/67
== END 2016-09-06 11:45 | disposition home or self-care (01) | DRG 781 ==
LOC: TRG 10:47 → LD 13:45 → OBSVTOIN 16:56
PROVIDERS: ADMIT Specialist; ATTEND Specialist
DX: O13.3 Gestational [pregnancy-induced] hypertension without significant proteinuria, third trimester (principal); O16.3 Unspecified maternal hypertension, third trimester; O99.113 Other diseases of the blood and blood-forming organs and certain disorders involving the immune mechanism complicating pregnancy, third trimester; D69.6 Thrombocytopenia, unspecified; O99.013 Anemia complicating pregnancy, third trimester; D64.9 Anemia, unspecified; Z3A.32 32 weeks gestation of pregnancy
CPT/HCPCS: 36415; 76805; 76819; 81001; 82565; 82570; 83615; 83735; 84156; 84450; 84460; 84550; 85027; 86850; 86900; 86901; 90686; J0702; J3475; J7120

== ENCOUNTER 2016-09-16 15:35 | Outpatient (CLI) | payer OTHER ==
[2016-09-16 15:54] VITALS: BP 107/57
[2016-09-16] MEDS ORDERED: LACTATED RINGERS 500 ML IV ONE (16:57)
[2016-09-16 17:52] LABS: Basophils % (Auto) 0.1 % (0.0-1.8); Eosinophils % (Auto) 0.8 % (0.0-4.3); Hematocrit 30.7 % (30.3-42.9); Mean Corpuscular HGB Conc 33 % (30-34); Mean Corpuscular Volume 79 fl (79-97); Platelet Count 104 K/mm3 (140-440); Red Blood Count 3.88 M/mm3 (3.65-5.03); Red Cell Distribution Width 15.4 % (13.2-15.2); White Blood Count 11.8 K/mm3 (4.5-11.0)
[2016-09-16 17:56] LABS: Mean Corpuscular Hemoglobin 26 pg (28-32)
[2016-09-16 18:21] LABS: Mucus,Urine 3+ /HPF
[2016-09-16 18:38] LABS: Bilirubin,Urine NEG (Negative); Blood,Urine NEG (Negative); Ketones,Urine 80 mg/dL (Negative); Leukocyte Esterase,Urine NEG (Negative); Nitrite,Urine NEG (Negative); Urobilinogen,Urine < 2.0 mg/dL (<2.0)
== END 2016-09-16 19:33 | disposition home or self-care (01) ==
LOC: TRG 15:35
PROVIDERS: ATTEND Specialist
DX: O77.9 Labor and delivery complicated by fetal stress, unspecified (principal); O47.9 False labor, unspecified; Z3A.00 Weeks of gestation of pregnancy not specified
CPT/HCPCS: 36415; 59025; 81001; 85025

== ENCOUNTER 2016-10-08 11:30 | Inpatient (IN) | payer OTHER ==
[2016-10-08] MEDS ORDERED: PITOCin/NS 20 UNIT/1000ML DRIP 20,000 MILLIUNITS/1,000 ML BAG IV ONE (12:29)
[2016-10-08] MEDS ORDERED: MAGNESIUM SULFATE 4GM/100ML 4 GM/100 ML BAG IV ONE ×2 (12:52→14:00)
[2016-10-08] MEDS ORDERED: XYLOCAINE 2% INFILTRATI ONE ×2 (12:52→14:00)
--- NOTE | 2016-10-08 13:14 | History and Physical Report ---
History of Present Illness Date of examination: 10/08/16 Date of admission: 10/08/16 11:30 Chief complaint: contractions, rupture of membranes History of present illness: 36 year old female MARISELA 10/24/16 at 37w5d who presents with contractions and rupture of membranes with thick meconium at 723 am. She rapidly progressed from 3 cm to complete dilation. She has had care with Dr Mckee since 20 wks complicated by a h/o PIH, anemia on iron supplementation, and thrombocytopenia. She is GBS positive. Past History Past Medical History: no pertinent history Past Surgical History: D&C Social history: no significant social history - Obstetrical History Expected Date of Delivery: 10/24/16 Actual Gestation: 37 Week(s) 5 Day(s) : 5 Para: 3 Hx # Term Pregnancies: 3 Number of Pregnancies: 0 Spontaneous Abortions: 0 Induced : 1 Number of Living Children: 3 Medications and Allergies Allergies Allergy/AdvReac Type Severity Reaction Status Date / Time No Known Allergies Allergy Unverified 09/04/16 10:48 Home Medications Medication Instructions Recorded Confirmed Last Taken Type Aspirin [Adult Low Dose Aspirin EC] 81 mg PO QDAY #30 tablet. 09/05/16 Unknown Rx Labetalol [Normodyne TAB] 200 mg PO BID #60 tablet 09/05/16 Unknown Rx Vit-Fe Fumar-FA [ 1 tab PO QDAY 09/05/16 09/05/16 Unknown History Vitamin] Ferrous Sulfate [Feosol 325 MG tab] 325 mg PO BID #60 tablet 09/06/16 Unknown Rx Review of Systems All systems: negative - Vital Signs Vital signs: Vital Signs Pulse Pulse Ox 89 81 L 10/08/16 11:35 10/08/16 11:35 Temp Pulse Resp BP Pulse Ox 99 H 160/89 100 10/08/16 12:53 10/08/16 12:53 10/08/16 12:43 - Physical Exam Abdomen: Positive: soft (gravid ) Uterus: Positive: enlarged (gravid ) Extremities: Positive: normal - Obstetrical FHR: category 2 Cervical Dilatation: 10 Cervical Effacement Percentage: 100 station: 0 Uterine Contraction Pattern: Regular Uterine Tone Measurement Phase: Resting Uterine Contraction Intensity: Strong/Firm Results All other labs normal. Assessment and Plan A: IUP at 37w5d SROM- thick meconium Second stage labor H/o PIH with elevated blood pressures Thrombocytopenia Anemia GBS positive P: Admit to labor and delivery. PIH labs Begin magesnium sulfate. Routine intrapartum care.
[2016-10-08] MEDS ORDERED: NARCAN 0.4 MG/1 ML IV PRN (13:19)
[2016-10-08] MEDS ORDERED: STADOL IV PRN (13:19)
[2016-10-08] MEDS ORDERED: ePHEDrine SULFATE IV PRN (13:19)
[2016-10-08] MEDS ORDERED: SUBLIMAZE IV PRN (13:19)
[2016-10-08] MEDS ORDERED: BRETHINE SUB-Q PRN (13:19)
[2016-10-08] MEDS ORDERED: BRETHINE IVP PRN (13:19)
[2016-10-08] MEDS ORDERED: MINERAL OIL PO PRN (13:19)
--- NOTE | 2016-10-08 13:19 | Procedure Note ---
OB Delivery Note - Delivery Date of Delivery: 10/08/16 Surgeon: LIZANDRO AMOS Estimated blood loss: 300cc - Vaginal Delivery presentation: vertex Delivery position: OA Intrapartum events: PROM->1hr before delivery, meconium, precipitous labor- <3hr , decreased FHT variability, mult.variable deceleratio Delivery induction: none Delivery monitor: external FHT, external uterine Route of delivery: Delivery placenta: spontaneous Delivery cord: nuchal cord Episiotomy: none Delivery laceration: 1st degree Delivery repair: vicryl Anesthesia: local - A at 1 minute: 8 at 5 minutes: 9 Gender: Male (3311g (7lb 5 oz))
[2016-10-08] MEDS ORDERED: ZOFRAN IV PRN (13:26)
[2016-10-08] MEDS ORDERED: CALCIUM GLUCONATE IV ONE (13:26)
[2016-10-08] MEDS ORDERED: TYLENOL PO PRN (13:26)
[2016-10-08] MEDS ORDERED: PERCOCET 5/325 PO PRN (13:26)
[2016-10-08] MEDS ORDERED: DERMOPLAST TP PRN (13:26)
[2016-10-08] MEDS ORDERED: PHENERGAN PR PRN (13:26)
[2016-10-08] MEDS ORDERED: DULCOLAX PR PRN (13:26)
[2016-10-08] MEDS ORDERED: APRESOLINE IV PRN (13:26)
[2016-10-08] MEDS ORDERED: TUCKS PAD TP PRN (13:26)
[2016-10-08] MEDS ORDERED: LANSINOH TP PRN ×2 (13:26)
[2016-10-08] MEDS ORDERED: MILK OF MAGNESIA PO PRN (13:26)
[2016-10-08] MEDS ORDERED: BENADRYL PO PRN (13:33)
[2016-10-08 13:44] LABS: Hematocrit 32.3 % (30.3-42.9); Hemoglobin 10.1 gm/dl (10.1-14.3); Mean Corpuscular HGB Conc 31 % (30-34); Mean Corpuscular Hemoglobin 24 pg (28-32); Mean Corpuscular Volume 77 fl (79-97); Platelet Count 118 K/mm3 (140-440); Red Blood Count 4.17 M/mm3 (3.65-5.03); Red Cell Distribution Width 16.3 % (13.2-15.2); White Blood Count 8.8 K/mm3 (4.5-11.0)
[2016-10-08] MEDS ORDERED: PHENERGAN PO PRN (13:45)
[2016-10-08] MEDS ORDERED: SODIUM CHLORIDE FLUSH SYRINGE 10 ML IV SCH (14:00)
[2016-10-08] MEDS: MAGNESIUM SULFATE 40GM/1000ML 40 GM/1,000 ML BAG IV SCH (14:00)
[2016-10-08] MEDS ORDERED: POLYCILLIN/NS 2 GM/100 ML 2 GM/100 ML BAG IV ONE (14:00)
[2016-10-08] MEDS ORDERED: PITOCin/NS 20 UNIT/1000ML DRIP 20 UNITS/1,000 ML BAG IV SCH ×3 (14:00)
[2016-10-08] MEDS ORDERED: LACTATED RINGERS 1,000 ML IV SCH ×2 (14:00)
[2016-10-08] MEDS: MOTRIN PO SCH (14:28)
[2016-10-08] MEDS ORDERED: NORMODYNE IV ONE (14:42)
[2016-10-08] MEDS ORDERED: CALCIUM GLUCONATE 1,000 MG in NACL 0.9% 100 ML IV ONE (15:00)
[2016-10-08 15:06] LABS: Alanine Aminotransferase 8 units/L (7-56); Lactate Dehydrogenase 230 units/L (91-180); Uric Acid 3.9 mg/dL (3.5-7.6)
[2016-10-08] MEDS: NORMODYNE PO SCH ×2 (16:55→22:10)
[2016-10-08] MEDS ORDERED: POLYCILLIN/NS 1 GM/50 ML 1 GM/50 ML BAG IV SCH (17:21)
[2016-10-08 19:37] LABS: Bilirubin,Urine NEG (Negative); Blood,Urine MOD (Negative); Ketones,Urine 20 mg/dL (Negative); Leukocyte Esterase,Urine NEG (Negative); Mucus,Urine FEW /HPF; Nitrite,Urine NEG (Negative); Protein,Urine <15 mg/dL mg/dL (Negative); Urobilinogen,Urine < 2.0 mg/dL (<2.0)
[2016-10-08] MEDS: FEOSOL PO SCH (22:09)
[2016-10-08] MEDS: COLACE PO SCH (22:10)
[2016-10-09 01:58] LABS: Hematocrit 30.5 % (30.3-42.9); Hemoglobin 9.8 gm/dl (10.1-14.3)
[2016-10-09] MEDS ORDERED: BOOSTRIX IM ONE (06:00)
[2016-10-09] MEDS: MOTRIN PO SCH ×4 (06:44→17:20)
--- NOTE | 2016-10-09 08:05 | Progress Note ---
Assessment and Plan ppd 1 s/p , plan. stable- d/c home tomorrow pm if stable. Subjective - Subjective Date of service: 10/09/16 Principal diagnosis: ppd 1 s/p Interval history: routine pp care, on mag sulfate x 24 hours. labetolol started bid. Patient reports: appetite normal, voiding normally, pain well controlled : doing well Objective - Vital Signs Latest vital signs: Vital Signs Temp Pulse Pulse Resp BP BP Pulse Ox 10/09/16 06:00 98 F 64 24 149/72 10/09/16 04:00 98.6 F 72 24 151/78 10/09/16 01:40 98.6 F 85 16 151/90 10/09/16 00:00 98.6 F 74 22 152/74 10/08/16 23:00 98.6 F 74 22 150/87 10/08/16 22:10 72 148/92 10/08/16 21:00 98.6 F 79 16 151/80 10/08/16 19:30 98.6 F 82 22 152/90 10/08/16 19:00 98.6 F 74 18 145/101 10/08/16 18:12 82 157/95 10/08/16 18:09 96.5 F L 18 10/08/16 17:58 86 155/95 10/08/16 17:43 93 H 158/100 10/08/16 17:28 84 180/102 10/08/16 17:18 82 188/101 10/08/16 17:08 91 H 97 10/08/16 17:03 91 H 98 10/08/16 16:58 82 191/111 98 10/08/16 16:55 101 H 191/111 10/08/16 16:53 82 98 10/08/16 16:48 83 99 10/08/16 16:43 80 190/110 98 10/08/16 16:38 81 99 10/08/16 16:34 82 187/109 10/08/16 16:33 81 97 10/08/16 16:28 83 98 10/08/16 16:23 78 98 10/08/16 16:18 79 98 10/08/16 16:13 76 178/108 99 10/08/16 16:08 79 98 10/08/16 16:03 78 97 10/08/16 15:58 86 180/105 98 10/08/16 15:53 78 98 10/08/16 15:48 79 97 10/08/16 15:43 75 98 10/08/16 15:42 81 184/106 10/08/16 15:29 86 99 10/08/16 15:28 87 172/100 10/08/16 15:24 87 99 10/08/16 15:19 90 98 10/08/16 15:14 89 99 10/08/16 15:13 89 171/97 10/08/16 15:09 96 H 100 10/08/16 15:04 95 H 100 10/08/16 14:59 91 H 99 10/08/16 14:58 82 174/97 10/08/16 14:54 83 97 10/08/16 14:49 81 98 10/08/16 14:48 75 175/91 10/08/16 14:46 83 191/104 10/08/16 14:44 78 198/109 99 10/08/16 14:43 86 214/107 10/08/16 14:39 80 99 10/08/16 14:34 94 H 99 10/08/16 14:29 89 98 10/08/16 14:28 83 18 186/96 10/08/16 14:24 91 H 99 10/08/16 14:19 88 99 10/08/16 14:17 90 188/95 10/08/16 14:14 85 99 10/08/16 14:13 85 197/98 10/08/16 14:09 82 99 10/08/16 14:04 89 99 10/08/16 13:59 89 98 10/08/16 13:58 92 H 174/82 10/08/16 13:54 97 H 98 10/08/16 13:49 94 H 99 10/08/16 13:43 90 178/85 10/08/16 13:40 85 100 10/08/16 13:35 83 100 10/08/16 13:30 88 100 10/08/16 13:28 86 194/91 10/08/16 13:25 89 100 10/08/16 13:20 84 100 10/08/16 13:13 87 172/84 10/08/16 13:12 82 178/80 10/08/16 12:53 99 H 160/89 02/28/17 12:52 100 H 163/89 10/08/16 12:51 104 H 160/91 10/08/16 12:50 106 H 184/97 10/08/16 12:43 99 H 100 10/08/16 12:42 101 H 207/118 10/08/16 12:30 111 H 98 10/08/16 12:29 108 H 88 10/08/16 12:10 107 H 100 10/08/16 12:09 61 L 10/08/16 12:00 100 H 93 10/08/16 11:51 89 99 10/08/16 11:48 102 H 71 L 10/08/16 11:46 97 H 99 10/08/16 11:42 101 H 82 L 10/08/16 11:41 89 98 10/08/16 11:36 87 159/100 87 10/08/16 11:35 89 81 L Intake and Output 10/08/16 10/09/16 10/09/16 22:59 06:59 14:59 Intake Total 1750 1050 Output Total 700 800 Balance 1050 250 Intake: IV 1750 750 MAGNESIUM SULFATE 40GM/ 200 1000ML 40 gm In 1,000 ml @ 1 GM/HR 25 mls/hr IV TITR LENNY Rx#:[id number] MAGNESIUM SULFATE 4GM/ 100 100ML 4 gm In 100 ml @ 300 mls/hr IV ONCE ONE Rx #:[id number] MAGNESIUM SULFATE 4GM/ 50 150 100ML 4 gm In 100 ml As IV .STK-MED ONE Rx#: [id number] PITOCin/NS 20 UNIT/1000ML 200 600 DRIP 20 units In 1,000 ml @ 125 mls/hr IV DIRECT LENNY Rx#:[id number] PITOCin/NS 20 UNIT/1000ML 200 DRIP 20 units In 1,000 ml @ 125 mls/hr IV TITR LENNY Rx#:[id number] PITOCin/NS 20 UNIT/1000ML 1000 DRIP 20 units In 1,000 ml @ 250 mls/hr IV TITR LENNY Rx#:[id number] Intake, Free Water 300 Output: Urine 700 800 Indwelling Catheter 800 Void 700 Other: Total, Output Amount 700 800 # Voids Void 1 - Exam Breasts: Present: deferred Cardiovascular: Present: Regular rate, Normal S1, Normal S2 Lungs: Present: Clear to auscultation Abdomen: Present: normal appearance, soft Vulva: both: normal Uterus: Present: normal, firm Extremities: Present: normal Incision: Present: normal, dry, intact - Labs Labs: Abnormal lab results 10/08/16 10/08/16 10/08/16 Range/Units 12:15 14:15 16:19 Hgb (10.1-14.3) gm/dl MCV 77 L (79-97) fl MCH 24 L (28-32) pg RDW 16.3 H (13.2-15.2) % Plt Count 118 L (140-440) K/mm3 Creatinine 0.6 L (0.7-1.2) mg/dL Magnesium 3.3 H (1.7-2.3) mg/dL Lactate Dehydrogenase 230 H (91-180) units/L 10/08/16 10/09/16 10/09/16 Range/Units 21:19 01:47 01:47 Hgb 9.8 L (10.1-14.3) gm/dl MCV (79-97) fl MCH (28-32) pg RDW (13.2-15.2) % Plt Count (140-440) K/mm3 Creatinine (0.7-1.2) mg/dL Magnesium 4.2 H 4.3 H (1.7-2.3) mg/dL Lactate Dehydrogenase (91-180) units/L
--- NOTE | 2016-10-09 08:13 | Discharge Summary ---
Providers - Providers Date of Admission: 10/08/16 11:30 Date of discharge: 10/09/16 Attending physician: HECTOR MEMBRENO 10/08/16 13:28 Consult to Computer Programming Manager [CONS] Routine Reason For Exam: assistance with , SNS Primary care physician: HECTOR MEMBRENO Hospitalization Reason for admission: active labor Delivery: Procedure details: Episiotomy: none Laceration: none Incision: normal Other procedures: none complications: none Discharge diagnosis: IUP at term delivered baby: male Hospital course: Magnesium sulfate and labetolol for BP elevation. Condition at discharge: Good Disposition: DISCHARGED TO HOME OR SELFCARE - Discharge Diagnoses (1) (normal spontaneous vaginal delivery) Status: Acute (2) PIH ( induced hypertension) Status: Acute Qualifiers: Trimester: T (3) Precipitous delivery Status: Acute (4) Anemia Status: Acute Qualifiers: Anemia type: A Iron deficiency anemia type: I Vitamin B12 deficiency anemia type: V Folate deficiency anemia type: F Bone marrow failure anemia type: B Hemolytic anemia type: H Other causes of anemia: O Comment: anemic prior to delivery slightly more following delivery and acute blood loss Plan - Discharge Medications Prescriptions: Ferrous Sulfate [Feosol 325 MG tab] 325 mg PO BID #60 tablet Ibuprofen [Motrin 800 MG tab] 800 mg PO Q8HR PRN #30 tablet PRN Reason: Pain Labetalol [Normodyne TAB] 200 mg PO BID #60 tablet oxyCODONE /ACETAMINOPHEN [Percocet 5/325] 1 tab PO Q6HR PRN #30 tablet PRN Reason: Pain - Provider Discharge Summary Activity: routine, no sex for 6 weeks, no heavy lifting 4 weeks, no strenuous exercise Diet: routine Instructions: routine Additional instructions: [] Smoking cessation referral if applicable(refer to patient education folder for contact #) [] Refer to [facility] Booklet Call your doctor immediately for: * Fever > 100.5 * Heavy vaginal bleeding ( >1 pad per hour) * Severe persistent headache * Shortness of breath * Reddened, hot, painful area to leg or breast * Drainage or odor from incision. * Keep incision clean and dry at all times and follow doctor's instructions regarding bathing/showering - Follow up plan Follow up: HECTOR MEMBRENO MD [Primary Care Provider] - 7 Days
[2016-10-09] MEDS: FEOSOL PO SCH ×2 (09:26→22:30)
[2016-10-09] MEDS: PRENATAL VITAMIN PO SCH (09:26)
[2016-10-09] MEDS: COLACE PO SCH ×2 (09:26→22:28)
[2016-10-09] MEDS: NORMODYNE PO SCH ×2 (09:26→22:27)
[2016-10-09] MEDS: MAGNESIUM SULFATE 40GM/1000ML 40 GM/1,000 ML BAG IV SCH (09:27)
[2016-10-09] MEDS ORDERED: M-M-R II VACCINE SUB-Q ONE (13:26)
[2016-10-09] MEDS ORDERED: NORMODYNE PO SCH ×2 (16:50→17:00)
[2016-10-10] MEDS: MOTRIN PO SCH ×2 (00:39→05:00)
[2016-10-10] MEDS ORDERED: BOOSTRIX IM ONE (06:00)
--- NOTE | 2016-10-10 08:33 | Event Note ---
Date: 10/10/16 pt without complaints. denies headache, blurred vision, dizziness or upper right quad pain. pt to be discharged on labetolol 200 mg bid. pt f/u in clinic in 1 week, for BP check.
[2016-10-10] MEDS: NORMODYNE PO SCH (10:11)
[2016-10-10] MEDS: PRENATAL VITAMIN PO SCH (10:11)
[2016-10-10] MEDS: FEOSOL PO SCH (10:11)
[2016-10-10 14:32] VITALS: BP 140/82
== END 2016-10-10 14:00 | disposition home or self-care (01) | DRG 775 ==
LOC: LD 11:30 → OB 18:26
PROVIDERS: ADMIT Specialist; ATTEND Specialist
PROC: 10E0XZZ Delivery of Products of Conception, External Approach (ICD-10-PCS; principal; 2016-10-08)
PROC: 0HQ9XZZ Repair Perineum Skin, External Approach (ICD-10-PCS; 2016-10-08)
PROC: 3E0S3BZ Introduction of Anesthetic Agent into Epidural Space, Percutaneous Approach (ICD-10-PCS; 2016-10-08)
PROC: 00HU33Z Insertion of Infusion Device into Spinal Canal, Percutaneous Approach (ICD-10-PCS; 2016-10-08)
PROC: 3E0234Z Introduction of Serum, Toxoid and Vaccine into Muscle, Percutaneous Approach (ICD-10-PCS; 2016-10-09)
DX: O76 Abnormality in fetal heart rate and rhythm complicating labor and delivery (principal); O99.12 Other diseases of the blood and blood-forming organs and certain disorders involving the immune mechanism complicating childbirth; O13.4 Gestational [pregnancy-induced] hypertension without significant proteinuria, complicating childbirth; O99.02 Anemia complicating childbirth; O62.3 Precipitate labor; O77.0 Labor and delivery complicated by meconium in amniotic fluid; O99.824 Streptococcus B carrier state complicating childbirth; O42.02 Full-term premature rupture of membranes, onset of labor within 24 hours of rupture; O70.0 First degree perineal laceration during delivery; Z3A.37 37 weeks gestation of pregnancy; Z37.0 Single live birth; Z23 Encounter for immunization
CPT/HCPCS: 36415; 81001; 82565; 83615; 83735; 84450; 84460; 84550; 85014; 85018; 85027; 86850; 86900; 86901; 88307; 90471; 99211; G0463; J0610; J2590; J3475